=== PATIENT | female | born 2000 | race Caucasian/White ===

== ENCOUNTER 2019-07-17 11:59 | Outpatient (REF) | payer BC, SELFPAY ==
[2019-07-17 19:57] LABS: ALT 75 U/L (14-59); AST 51 U/L (15-37); Albumin 4.1 g/dL (3.4-5.0); Alkaline Phosphatase 95 U/L (46-116); Anion Gap 11.9 mmol/L (3-11); BUN 9 mg/dL (7-18); Bilirubin, Total 0.3 mg/dL (0.2-1.0); CO2 27.1 mmol/L (21.0-32.0); CREATININE 0.73 mg/dL (0.55-1.02); Calcium 9.5 mg/dL (8.5-10.1); Chloride 102 mmol/L (98-107); Glucose 89 mg/dL (70-100); Sodium 141 mmol/L (136-145); Total Protein 9.2 g/dL (6.4-8.2)
[2019-07-17 20:16] LABS: HCT 41.9 % (36.0-46.0); HGB 13.5 g/dL (12.0-15.5); Mean Corp. HGB Concentration 32.2 g/dL (32.0-36.0); Mean Corpuscular Hemoglobin 29.1 pg (27.0-33.0); Mean Corpuscular Volume 90.3 fL (80-95); Mean Platelet Volume 10.7 fL (8.0-11.0); Platelet Count 215 x1000/uL (130-400); RBC 4.64 m/cumm (4.00-5.20); RBC Distribution Width 12.9 % (11.7-14.6); White Blood Cell Count 5.67 k/cumm (4.4-10.8)
[2019-07-19 11:34] LABS: Hepatitis B Surface Ag Negative (NEGAT)
[2019-07-19 11:47] LABS: Syphilis Serology (RPR) Negative (Negative)
[2019-07-19 12:32] LABS: Hepatitis B Surface Ab Positive
[2019-07-19 12:34] LABS: HIV-1/2 Ag & Ab Screen Negative (NEGAT)
[2019-07-19 12:36] LABS: Hep A Total Ab w Rflx IgM Negative (NEGAT)
[2019-07-19 12:42] LABS: Hepatitis C Ab w Rflx HCV PCR Negative (NEGAT)
== END 2019-07-17 12:19 ==
LOC: NCHCN 11:59
PROVIDERS: PCP Nurse Practitioner Family; Visit Provider Nurse Practitioner Family
DX: Z20.2 Contact with and (suspected) exposure to infections with a predominantly sexual mode of transmission (principal); Z11.4 Encounter for screening for human immunodeficiency virus [HIV]; Z11.51 Encounter for screening for human papillomavirus (HPV)
CPT/HCPCS: 80053; 85027; 86706; 86709; 86803; 87340; 87389; 86592

== ENCOUNTER 2020-05-29 16:42 | Outpatient (REF) | payer BC, SELFPAY ==
[2020-06-01 22:30] LABS: Patient Race White; SARS-CoV-2 RNA Undetected (Undetected); SARS-CoV-2 Specimen Source Nasopharynx
== END 2020-05-29 17:02 ==
LOC: NCHCN 16:42
PROVIDERS: PCP Nurse Practitioner Family; Visit Provider Nurse Practitioner Family
DX: J06.9 Acute upper respiratory infection, unspecified (principal)
CPT/HCPCS: U0003

== ENCOUNTER 2020-07-18 13:39 | Outpatient (REF) | payer BC, SELFPAY ==
--- NOTE | 2020-07-18 12:15 | PAPFT_PTH ---
PATIENT: Smita Taveras LOC: [facility] U#:[id number] AGE/SX: 20/F ROOM: RE07/18/[address]: Chucho Reyes : 2000 BED: DIS: 07/18/2020 SPEC #: [id number] RECD: 07/18/20 18:14 STATUS: TAMEKA REQ #: [id number] CLARA: 07/18/20 12:[address]: Chucho Reyes DEPT: [facility] Cytology RECD BY: Asia Galicia Tissues: 1 - CX/ENDOCX FOR PAP SMEARS Procedures: PAP THIN PREP/UVM Screening Comments: [id number] (CHLAMYDIA/GC)
[2020-07-18 18:53] LABS: HCT 45.5 % (36.0-46.0); HGB 14.6 g/dL (11.2-15.7); MCH 29.7 pg (27.0-33.0); MCHC 32.1 % (32.0-36.0); MCV 92.5 fL (80-95); Platelet Count 210 10^3/uL (130-400); RBC 4.92 10^6/uL (3.93-5.22); RDW 12.2 % (11.7-14.6); RDW-SD 42.2 fL; WBC 5.09 10^3/uL (4.4-10.8)
[2020-07-18 19:12] LABS: ALT 24 U/L (14-59); AST 14 U/L (15-37); Albumin 4.4 g/dL (3.4-5.0); Alkaline Phosphatase 70 U/L (46-116); Anion Gap 6.8 mmol/L (3-11); BUN 6 mg/dL (7-18); Bilirubin, Total 0.4 mg/dL (0.2-1.0); CO2 27.2 mmol/L (21.0-32.0); CREATININE 0.69 mg/dL (0.55-1.02); Calcium 9.3 mg/dL (8.5-10.1); Chloride 106 mmol/L (98-107); Glucose 75 mg/dL (74-106); Sodium 140 mmol/L (136-145); Total Protein 8.6 g/dL (6.4-8.2)
[2020-07-21 10:16] LABS: HIV-1/2 Ag & Ab Screen Negative (Negative)
[2020-07-21 10:46] LABS: Syphilis Serology (RPR) Negative (Negative)
[2020-07-21 14:22] LABS: HCV RNA Qualitative Undetected (Undetected)
[2020-07-21 15:14] LABS: Chlamydia Result Negative (Negative); GC Result Negative (Negative)
[2020-07-22 07:15] LABS: Chlamydia Result Negative (Negative); GC Result Negative (Negative)
== END 2020-07-18 13:59 ==
LOC: NCHCN 13:39
PROVIDERS: PCP Nurse Practitioner Family; Visit Provider Nurse Practitioner Family
DX: Z00.00 Encounter for general adult medical examination without abnormal findings (principal); Z12.4 Encounter for screening for malignant neoplasm of cervix; Z11.51 Encounter for screening for human papillomavirus (HPV); Z11.3 Encounter for screening for infections with a predominantly sexual mode of transmission
CPT/HCPCS: 80053; 85027; 87389; 87491; 87522; 87591; 88142; 86592; 87480; 87510; 87660

== ENCOUNTER 2020-08-28 10:49 | Emergency (ER) | payer OTHER, BC, SELFPAY ==
[2020-08-28 10:55] VITALS: BP 128/88; PULSE 106; RESP 16; TEMP 37.4; O2SAT 99
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
[2020-08-28] MEDS: Ondansetron O.D.T. 4 MG TABEF PO (11:21)
[2020-08-28] MEDS: Ibuprofen 600 MG TAB PO (11:28)
[2020-08-28 12:12] VITALS: BP 106/75; PULSE 97; RESP 18; TEMP 37.1; O2SAT 100
[2020-08-28 12:15] VITALS: BP 106/75; PULSE 97; RESP 18; TEMP 37.1; O2SAT 100
== END 2020-08-28 12:15 | disposition home or self-care (01) ==
PROVIDERS: Emergency Provider Registered Nurse Emergency; PCP Nurse Practitioner Family
DX: S00.11XA Contusion of right eyelid and periocular area, initial encounter (principal); V43.52XA Car driver injured in collision with other type car in traffic accident, initial encounter; M54.2 Cervicalgia
CPT/HCPCS: 81025; 99284; 70486

== ENCOUNTER 2020-08-29 21:17 | Outpatient (REF) | payer BC, SELFPAY ==
[2020-09-02 21:09] LABS: COVID-19 RT-PCR Result Positive (Negative)
== END 2020-08-29 21:37 ==
LOC: NCHCN 21:17
PROVIDERS: PCP Nurse Practitioner Family; Visit Provider Nurse Practitioner Family
DX: R43.0 Anosmia (principal)
CPT/HCPCS: U0003

== ENCOUNTER 2020-11-22 14:39 | Outpatient (REF) | payer BC, SELFPAY ==
[2020-11-23 16:34] LABS: COVID-19 RT-PCR UVMMC Result Negative (Negative)
== END 2020-11-22 14:40 | disposition home or self-care (01) ==
LOC: NCHCN 14:39
PROVIDERS: PCP Nurse Practitioner Family; Visit Provider Nurse Practitioner Family
DX: Z20.822 Contact with and (suspected) exposure to COVID-19 (principal); J02.9 Acute pharyngitis, unspecified
CPT/HCPCS: U0003; 87086

== ENCOUNTER 2020-12-26 10:46 | Outpatient (REF) | payer BC, SELFPAY ==
[2020-12-26 15:31] LABS: Abs Immature Grans 0.01 10^3/uL (0.0-0.06); Absolute Basophil Count 0.02 10^3/uL (0.0-0.2); Absolute Eosinophil Count 0.05 10^3/uL (0.0-0.7); Absolute Monocyte Count 0.25 10^3/uL (0.1-0.8); Absolute Neutrophil Count 1.79 10^3/uL (1.2-6.7); Basophils % 0.6; Eosinophils % 1.4; HCT 39.5 % (36.0-46.0); HGB 13.1 g/dL (11.2-15.7); Immature Grans % 0.3; Lymphocytes % 41.4; MCH 29.4 pg (27.0-33.0); MCHC 33.2 % (32.0-36.0); MCV 88.8 fL (80-95); MPV 11.2 fL (8.0-11.0); Monocytes % 6.9; Neutrophils % 49.4; Nucleated RBC 0 %; Platelet Count 183 10^3/uL (130-400); RBC 4.45 10^6/uL (3.93-5.22); RDW 11.9 % (11.7-14.6); RDW-SD 38.2 fL; WBC 3.62 10^3/uL (4.4-10.8)
[2020-12-26 15:53] LABS: ALT 19 U/L (14-59); AST 13 U/L (15-37); Alkaline Phosphatase 65 U/L (46-116); Anion Gap 7.8 mmol/L (3-11); BUN 10 mg/dL (7-18); Bilirubin, Total 0.4 mg/dL (0.2-1.0); CO2 26.2 mmol/L (21.0-32.0); CREATININE 0.7 mg/dL (0.55-1.02); Calcium 9.2 mg/dL (8.5-10.1); Chloride 106 mmol/L (98-107); Glucose 82 mg/dL (74-106); Sodium 140 mmol/L (136-145); Total Protein 7.8 g/dL (6.4-8.2)
[2020-12-29 11:28] LABS: Lyme Ab w Rflx to Lyme Confirm Negative (Negative)
[2020-12-30 06:01] LABS: Anaplasma phagocytophilum Negative (Negative); B. miyamotoi PCR Negative (Negative); Babesia divergens/MO-1 Negative (Negative); Babesia duncani Negative (Negative); Babesia microti Negative (Negative); Ehrlichia chaffeensis Negative (Negative); Ehrlichia ewingii/canis Negative (Negative); Ehrlichia muris eauclairensis Negative (Negative)
== END 2020-12-26 10:47 | disposition home or self-care (01) ==
LOC: NCHCN 10:46
PROVIDERS: PCP Nurse Practitioner Family; Visit Provider Nurse Practitioner Family
DX: R53.83 Other fatigue (principal); Z86.16 Personal history of COVID-19; R00.2 Palpitations
CPT/HCPCS: 80053; 87798; 84443; 85025; 86618

== ENCOUNTER 2022-09-16 07:36 | Emergency (ER) | payer BC, SELFPAY ==
[2022-09-16 07:41] VITALS: BP 127/74; PULSE 88; RESP 16; TEMP 36.7; O2SAT 99
--- NOTE | 2022-09-16 08:00 | RT.EKG_ITS ---
APPROVED REPORT Exam: Resting ECG Reason for Exam: assess intervals Patient Location: E HR:73 bpm ECG Measurements Heart Rate 73 AXIS MD 129 P -42 QRSd 92 QRS 4 QT 379 T 9 QTc 419 Conclusion Sinus rhythm...normal P axis, V-rate 60- 99. Sinus. Normal axis. No STEMI. I have reviewed and interpreted ECG and agree with software generated interpretation.
--- NOTE | 2022-09-16 08:14 | ED.GENADUL_ITS ---
Discharge Plan Disposition Patient Disposition: Home Condition: Improving Discharge Details Clinical Impression: Nausea and vomiting during prior to 22 weeks gestation Primary Care Provider: Alyssa Sams ED Provider: Willow Benjamin Home Meds and New Rx's Prescriptions: Continued ondansetron 4 mg tablet,disintegrating 4 mg PO Q8H PRN (Reason: nausea and vomiting) Qty: 14 3RF rizatriptan [Maxalt] 10 mg tablet 10 mg PO ONCE Qty: 14 3RF Rx Instructions: may repeat once after at least 2 hours Excedrin Migraine 250-250-65 mg tablet 2 tab PO BID PRN escitalopram oxalate 20 mg tablet 10 mg PO DAILY Discharge Instructions Instructions: Nausea and Vomiting in (ED) Additional Instructions: Your blood tests today are reassuring and show no evidence of acute concerning or significant findings. Drink plenty of fluids and get plenty of rest. Take the Zofran as needed and directed for nausea and vomiting. Call your central office repairer today to schedule a follow-up appointment for reevaluation within the next week. Return immediately to the emergency department if you develop any worsening or new concerning symptoms. Stand Alone Forms: Work Release Discharge Data Discharge Date/Time-TO BE ENTERED AT DEPARTURE: 09/16/22 10:49 Discharge Physician: Willow Benjamin Medical Decision Making 0750 -- 22-year-old female G1, P0 at approximately 8 weeks presents with nausea and vomiting for the past 4 weeks, persistent over the past few days. Vitals within normal limits. Patient appears comfortable and nontoxic. Her abdomen is soft and nontender. Patient states she has had an OB ultrasound at [facility] which confirmed a single IUP. We will obtain these results. We will also place an IV, bolus IV fluids, screening labs, urinalysis, fluvid and give zofran and reassess. EKG obtained due to interaction of Zofran with Lexapro and she has a normal QT interval. 1030 --patient reassessed and she feels much better would like to go home. She was able to drink water and eat crackers and has no further nausea and vomiting. She again denies any abdominal pain. Have not yet received the OB ultrasound report from [place] the patient confirms that she has a single IUP. She states she has Zofran at home. We will give additional Zofran upon discharge. She is advised to call her OB today for follow-up. Usual and customary return precautions given prior to discharge. After patient discharge, able to obtain recent OB ultrasound from [facility] which noted an endometrial gestational sac but no evidence of yolk sac. Medical Records Medical records reviewed: Yes I reviewed the patient's medical records. Lab Data Lab results reviewed: Yes I reviewed the patient's lab results. Labs: Laboratory Tests Range/Units 09/16/22 09/16/22 09/16/22 08:40 08:40 08:43 WBC (4.4-10.8) 10^3/uL 4.94 RBC (3.93-5.22) 10^6/uL 4.68 Hgb (11.2-15.7) g/dL 13.9 Hct (36.0-46.0) % 41.2 MCV (80-95) fL 88 MCH (27.0-33.0) pg 29.7 MCHC (32.0-36.0) % 33.7 RDW (11.7-14.6) % 11.8 Plt Count (130-400) 10^3/uL 188 MPV (8.0-11.0) fL 10.6 Immature Gran % 0.2 Neutrophils % 65.6 Lymphocytes % 27.9 Monocytes % 5.7 Eosinophils % 0.4 Basophils % 0.2 Nucleated RBC % (0.0-0.3) % 0.0 Absolute Neutrophils (1.2-6.7) 10^3/uL 3.24 Absolute Lymphocytes (1.2-3.4) 10^3/uL 1.38 Absolute Monocytes (0.1-0.8) 10^3/uL 0.28 Absolute Eosinophils (0.0-0.7) 10^3/uL 0.02 Absolute Basophils (0.0-0.2) 10^3/uL 0.01 Sodium (136-145) mmol/L 135 L Potassium (3.5-5.1) mmol/L 3.7 Chloride (98-107) mmol/L 100 Carbon Dioxide (21.0-32.0) mmol/L 25.4 Anion Gap (3-11) mmol/L 9.6 BUN (7-18) mg/dL 8 Creatinine (0.55-1.02) mg/dL 0.6 Est GFR (CKD-EPI 2021) (mL/min/1.73m2) 128.46 Glucose (74-106) mg/dL 84 Calcium (8.5-10.1) mg/dL 9.6 Total Bilirubin (0.2-1.0) mg/dL 0.4 AST (15-37) U/L 25 ALT (14-59) U/L 38 Alkaline Phosphatase (46-116) U/L 57 Total Protein (6.4-8.2) g/dL 8.9 H Albumin (3.4-5.0) g/dL 4.0 Urine Color (Yellow) Urine Clarity (Clear) Urine pH (5-8) Ur Specific [place] (1.005-1.025) Urine Protein (Negative) mg/dL Urine Ketones (Negative) mg/dL Urine Blood (Negative) Urine Nitrite (Negative) Urine Bilirubin (Negative) Urine Urobilinogen (Up TO 0.2) EU/dL Ur Leukocyte Esterase (Negative) Urine RBC (0-2) HPF Urine WBC (0-5) HPF Ur Epithelial Cells (Negative) HPF Urine Crystals (Negative) HPF Urine Bacteria (Negative) HPF Urine Casts (Negative) LPF Urine Mucus (Negative) Ur Culture Indicated? Urine Glucose (Negative) mg/dL COVID-19 Source Nasopharynx SARS-CoV-2 (PCR) (Negative) Negative Influenza Type A (PCR) (Negative) Negative Influenza Type B (PCR) (Negative) Negative RSV (PCR) (Negative) Negative Range/Units 09/16/22 09:15 WBC (4.4-10.8) 10^3/uL RBC (3.93-5.22) 10^6/uL Hgb (11.2-15.7) g/dL Hct (36.0-46.0) % MCV (80-95) fL MCH (27.0-33.0) pg MCHC (32.0-36.0) % RDW (11.7-14.6) % Plt Count (130-400) 10^3/uL MPV (8.0-11.0) fL Immature Gran % Neutrophils % Lymphocytes % Monocytes % Eosinophils % Basophils % Nucleated RBC % (0.0-0.3) % Absolute Neutrophils (1.2-6.7) 10^3/uL Absolute Lymphocytes (1.2-3.4) 10^3/uL Absolute Monocytes (0.1-0.8) 10^3/uL Absolute Eosinophils (0.0-0.7) 10^3/uL Absolute Basophils (0.0-0.2) 10^3/uL Sodium (136-145) mmol/L Potassium (3.5-5.1) mmol/L Chloride (98-107) mmol/L Carbon Dioxide (21.0-32.0) mmol/L Anion Gap (3-11) mmol/L BUN (7-18) mg/dL Creatinine (0.55-1.02) mg/dL Est GFR (CKD-EPI 2020) (mL/min/1.73m2) Glucose (74-106) mg/dL Calcium (8.5-10.1) mg/dL Total Bilirubin (0.2-1.0) mg/dL AST (15-37) U/L ALT (14-59) U/L Alkaline Phosphatase (46-116) U/L Total Protein (6.4-8.2) g/dL Albumin (3.4-5.0) g/dL Urine Color (Yellow) Yellow Urine Clarity (Clear) Clear Urine pH (5-8) 7.0 Ur Specific [place] (1.005-1.025) 1.015 Urine Protein (Negative) mg/dL Negative Urine Ketones (Negative) mg/dL 15 H Urine Blood (Negative) Negative Urine Nitrite (Negative) Negative Urine Bilirubin (Negative) Negative Urine Urobilinogen (Up TO 0.2) EU/dL 0.2 Ur Leukocyte Esterase (Negative) Trace H Urine RBC (0-2) HPF Negative Urine WBC (0-5) HPF 0-2 Ur Epithelial Cells (Negative) HPF Moderate Urine Crystals (Negative) HPF Negative Urine Bacteria (Negative) HPF Rare Urine Casts (Negative) LPF Negative Urine Mucus (Negative) Trace Ur Culture Indicated? No/Sq. Contamination Urine Glucose (Negative) mg/dL Negative COVID-19 Source SARS-CoV-2 (PCR) (Negative) Influenza Type A (PCR) (Negative) Influenza Type B (PCR) (Negative) RSV (PCR) (Negative) ECG Data Attestation: I personally reviewed and interpreted this ECG (s) as follows: Interpretation: rate of 73, sinus, normal axis, QTc 419. No stemi. HPI General Mode of arrival: ambulatory . Date/Time Provider Initiated Documentation: 09/16/22 07:37 . Limitations to Documentation: no limitations . Information obtained by: patient . HPI Narrative: Patient is a 22-year-old female G1, P0 at approximately 8 weeks with a reported last menstrual period around Halloween presents for nausea and vomiting for the past several weeks, worse over the past few days with concern for dehydration per patient. Patient states he vomited 9 times yesterday which was mainly clear, food or bile. She states she has been able to keep down her dinner since last night. She has been trying to drink fluids as much as possible. She states her last bowel movement was 4 days ago. She states she normally has a bowel movement every other day. Patient denies any abdominal pain or vaginal bleeding. She also denies fever, chest pain, difficulty breathing, dysuria or hematuria. Related Data Home Medications Medication Instructions Recorded Confirmed ondansetron 4 mg disintegrating 4 mg PO Q8H PRN nausea and 03/25/21 09/16/22 tablet vomiting #14 tabs alkljjj-rimvabqpqyjgu-euqjrfnv 250 2 tab PO BID PRN 05/19/21 09/16/22 mg-250 mg-65 mg tablet (Excedrin Migraine) rizatriptan 10 mg tablet (Maxalt) 10 mg PO ONCE #14 tabs 11/10/21 09/16/22 escitalopram oxalate 20 mg tablet 10 mg PO DAILY 09/16/22 09/16/22 Previous Rx's Medication Instructions Recorded ondansetron 4 mg disintegrating 4 mg PO Q8H PRN nausea and 03/25/21 tablet vomiting #14 tabs rizatriptan 10 mg tablet (Maxalt) 10 mg PO ONCE #14 tabs 11/10/21 Allergies Allergy/AdvReac Type Severity Reaction Status Date / Time No Known Allergies Allergy Verified 09/16/22 07:45 General Stated Complaint: Nausea/Vomit/Diar GENEVIEVE: 4 Review of Systems All systems reviewed & are unremarkable except as noted in HPI and below Constitutional Constitutional: Reports as per HPI, Denies chills and Denies fever(s) Eyes Eyes: Denies blurry vision ENT Ears, Nose, Mouth, and Throat: Denies dizziness, Denies sore throat and Denies throat swelling Cardiovascular Cardiovascular: Denies chest pain and Denies dyspnea Respiratory Respiratory: Denies cough and Denies dyspnea Gastrointestinal Gastrointestinal: Denies abdominal pain, Denies diarrhea, Reports nausea and Reports vomiting Genitourinary Genitourinary: Denies hematuria and Denies dysuria Musculoskeletal Musculoskeletal: Denies back pain and Denies numbness Integumentary/Breasts Skin/Breast: Denies lesions and Denies rash Neurologic Neurologic: Denies dizziness, Denies localized weakness and Denies numbness Allergic/Immunologic Allergic/Immunologic: Denies throat swelling PFSH All Active Problems (Updated 09/16/22 @ 10:37 by Willow Benjamin DO) Nausea and vomiting during prior to 22 weeks gestation (Acute) Mood swings (Acute) Complaints of memory disturbance (Acute) Migraine (Acute) COVID-19 long hauler (Acute) Acne (Acute 11/22/12) inflamatory followed by drem--accutaine 12/11/2013 Allergic rhinitis (Acute 01/20/12) Idiopathic scoliosis (Acute 01/20/12) Normal body mass index (Acute 02/16/17) Preventative health care (Acute 02/16/17) Routine sports examination for healthy child or adolescent (Acute 07/19/13) Medical History (Updated 09/16/22 @ 10:37 by Willow Benjamin DO) Adjustment disorder with mixed anxiety and depressed mood Chronic constipation Cystic acne Dyspareunia Elevated liver function tests Fatigue Irritability Menorrhagia Palpitations Personal history of COVID-19 Self-harming behavior Snoring UTI (urinary tract infection) as baby Surgical History (Updated 09/16/22 @ 08:28 by Willow Benjamin DO) No significant past surgical history Family History Mother Menorrhagia Neoplasm breast Father Anxiety Depression Other No problems noted. Brother Asthma Social History Smoking/Tobacco Use Status: Never Smoking risk assessment performed?: Yes Alcohol Intake: current Alcohol Intake frequency: a few times a month Drug use: Occasionally Substance use type: marijuana Details: No use since Do you feel safe at home: Yes Do you feel safe in your relationship?: Yes Exam Const General: cooperative, healthy appearing and no acute distress HENMT Head: normal to inspection Face and sinus: normal facial exam Eyes General: appearance normal, both eyes and all related structures Neck Neck: normal visual inspection and No submandibular swelling Lymphatic: no lymphadenopathy noted Chest Chest: normal inspection of the chest and no tenderness Resp Effort & Inspection: normal respiratory effort and able to speak in complete sentences Auscultation: clear to auscultation bilaterally Cardio Rate: regular rate Rhythm: regular rhythm GI Inspection: normal to inspection Palpation: soft, not firm, not rigid and nontender Auscultation: hypoactive bowel sounds Back/Spine/Pelvis Thoracic/Lumbar Spine: thoracic and lumbar spine normal to inspection Skin General skin exam: no rashes or lesions noted Neuro General: patient alert, patient awake and patient oriented x3 Cognition: normal cognition Speech: speech normal Motor: muscle tone normal throughout Sensory Exam: no sensory deficits noted Extrem General: normal to inspection, full ROM, capillary refill normal, no calf tenderness bilaterally and no edema Psych Appearance: grossly normal Mental Status: mental status grossly normal Speech and Movement: speech and movement normal Affect: normal affect Course Vital Signs Vital signs: Vital Signs Temperature 98.1 F 09/16/22 07:41 Pulse 88 09/16/22 07:41 Respiratory Rate 16 09/16/22 07:41 Blood Pressure 127/74 09/16/22 07:41 Pulse Oximetry 99 09/16/22 07:41 Temperature 98.1 F 09/16/22 07:41 Temperature Source Temporal Artery Scan 09/16/22 07:41 Pulse 88 09/16/22 07:41 Respiratory Rate 16 09/16/22 07:41 Respiratory Effort Non-Labored 09/16/22 07:43 Blood Pressure 127/74 09/16/22 07:41 Blood Pressure Position Sitting 09/16/22 07:41 Pulse Oximetry 99 09/16/22 07:41 Oxygen Delivery Method Room Air 09/16/22 07:41 Oxygen Flow Rate 0 09/16/22 07:41 Pain Level 3 09/16/22 07:41
[2022-09-16] MEDS: Normal Saline 1,000 ML 1000 ML IV (08:41)
[2022-09-16] MEDS: Ondansetron 4 MG/2 ML VIAL IVP (08:41)
[2022-09-16 08:49] LABS: Abs Immature Grans 0.01 10^3/uL (0.0-0.06); Absolute Basophil Count 0.01 10^3/uL (0.0-0.2); Absolute Eosinophil Count 0.02 10^3/uL (0.0-0.7); Absolute Lymphocyte Count 1.38 10^3/uL (1.2-3.4); Absolute Monocyte Count 0.28 10^3/uL (0.1-0.8); Absolute Neutrophil Count 3.24 10^3/uL (1.2-6.7); Basophils % 0.2; Eosinophils % 0.4; HCT 41.2 % (36.0-46.0); HGB 13.9 g/dL (11.2-15.7); Immature Grans % 0.2; Lymphocytes % 27.9; MCH 29.7 pg (27.0-33.0); MCHC 33.7 % (32.0-36.0); MCV 88 fL (80-95); MPV 10.6 fL (8.0-11.0); Monocytes % 5.7; Neutrophils % 65.6; Platelet Count 188 10^3/uL (130-400); RBC 4.68 10^6/uL (3.93-5.22); RDW 11.8 % (11.7-14.6); RDW-SD 37.7 fL; WBC 4.94 10^3/uL (4.4-10.8)
[2022-09-16 09:03] LABS: ALT 38 U/L (14-59); AST 25 U/L (15-37); Alkaline Phosphatase 57 U/L (46-116); Anion Gap 9.6 mmol/L (3-11); BUN 8 mg/dL (7-18); Bilirubin, Total 0.4 mg/dL (0.2-1.0); CO2 25.4 mmol/L (21.0-32.0); CREATININE 0.6 mg/dL (0.55-1.02); Calcium 9.6 mg/dL (8.5-10.1); Chloride 100 mmol/L (98-107); Estimated GFR 128.46 (mL/min/1.73m2); Glucose 84 mg/dL (74-106); Potassium 3.7 mmol/L (3.5-5.1); Sodium 135 mmol/L (136-145); Total Protein 8.9 g/dL (6.4-8.2)
[2022-09-16 09:26] LABS: Bilirubin Negative (Negative); Blood Negative (Negative); Clarity Clear (Clear); Glucose Negative (Negative); Ketones 15 mg/dL (Negative); Leukocyte Esterase Trace (Negative); Nitrite Negative (Negative); Specific Gravity 1.015 (1.005-1.025); Urobilinogen 0.2 EU/dL (Up TO 0.2)
[2022-09-16 09:26] LABS: COVID-19 PCR Negative (Negative); Influenza A PCR Negative (Negative); Influenza B PCR Negative (Negative); RSV PCR Negative (Negative)
[2022-09-16 09:27] LABS: Source Nasopharynx
[2022-09-16 09:36] LABS: RBC Negative HPF (0-2); WBC 0-2 HPF (0-5)
[2022-09-16 09:37] LABS: Bacteria Rare HPF (Negative); C & S Indicated? No/Sq. Contamination; Casts Negative LPF (Negative); Crystals Negative HPF (Negative); Epithelial Cells Moderate HPF (Negative); Mucus Trace (Negative)
[2022-09-16 10:37] VITALS: BP 106/67; PULSE 77; TEMP 37; O2SAT 100
== END 2022-09-16 10:49 | disposition home or self-care (01) ==
PROVIDERS: Emergency Provider Physician Assistant; PCP Nurse Practitioner
DX: O21.9 Vomiting of pregnancy, unspecified (principal); Z3A.08 8 weeks gestation of pregnancy; Z20.822 Contact with and (suspected) exposure to COVID-19; Z86.16 Personal history of COVID-19
CPT/HCPCS: 36415; 80053; 87637; 93005; 96361; 96374; 99284; 81003; 81015; 85025; 93010; J2405

== ENCOUNTER 2023-11-11 18:25 | Emergency (ER) | payer BC, SELFPAY ==
[2023-11-11 18:37] VITALS: BP 128/81; PULSE 105; RESP 16; TEMP 36.7; O2SAT 98
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
[2023-11-11] MEDS: Acetaminophen 500 MG TAB 1000 MG PO (19:09)
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
[2023-11-11] MEDS: diphenhydrAMINE 25 MG CAP PO (19:48)
[2023-11-11] MEDS: Prochlorperazine 5 MG TAB PO (19:49)
[2023-11-11 20:19] VITALS: BP 128/81; PULSE 105; RESP 16; TEMP 36.7; O2SAT 98
== END 2023-11-11 20:19 | disposition home or self-care (01) ==
PROVIDERS: Emergency Provider Registered Nurse Emergency; PCP Physician Assistant
DX: S16.1XXA Strain of muscle, fascia and tendon at neck level, initial encounter (principal); M54.2 Cervicalgia; R51.9 Headache, unspecified; R11.0 Nausea; V47.0XXA Car driver injured in collision with fixed or stationary object in nontraffic accident, initial encounter
CPT/HCPCS: 99284; 70450; 72125; 99283

== ENCOUNTER 2025-01-23 15:11 | Outpatient (REF) | payer MEDICAID, SELFPAY ==
[2025-01-23 20:46] LABS: HCT 40.7 % (36.0-46.0); HGB 13.1 g/dL (11.2-15.7); MCH 28.6 pg (27.0-33.0); MCHC 32.2 % (32.0-36.0); MCV 89 fL (80-95); MPV 10.9 fL (8.0-11.0); Platelet Count 161 10^3/uL (130-400); RBC 4.58 10^6/uL (3.93-5.22); RDW 12.7 % (11.7-14.6); RDW-SD 41.1 fL; WBC 4.54 10^3/uL (4.4-10.8)
[2025-01-23 21:26] LABS: Ferritin 27 ng/mL (8-252); TSH 1.97 uIU/mL (0.36-3.74); Vitamin B12 598 pg/mL (193-986)
[2025-01-23 21:42] LABS: Iron 66 ug/dL (50-170); Total Iron Binding Capacity 349 ug/dL (250-450); Transferrin Sat 19 % (15-50)
[2025-01-23 22:28] LABS: FREE T4 0.77 ng/dL (0.76-1.46)
== END 2025-01-23 15:12 | disposition home or self-care (01) ==
LOC: NCHCN 15:11
PROVIDERS: PCP Physician Assistant; Visit Provider Physician Assistant
DX: R51.9 Headache, unspecified (principal); G89.29 Other chronic pain; R53.83 Other fatigue
CPT/HCPCS: 85027; 82607; 82728; 83540; 83550; 84439; 84443

== ENCOUNTER 2025-02-13 21:37 | Outpatient (REF) | payer MEDICAID, SELFPAY | END 2025-02-13 21:38 | disposition home or self-care (01) | LOC: LBN 21:37 | PROVIDERS: PCP Physician Assistant; Visit Provider Physician Assistant Medical | DX: J02.9 Acute pharyngitis, unspecified (principal) | CPT/HCPCS: 87070 ==

== ENCOUNTER 2025-04-29 16:03 | Outpatient (REF) | payer MEDICAID, SELFPAY ==
[2025-04-29 19:27] LABS: Iron 57 ug/dL (50-170); Total Iron Binding Capacity 317 ug/dL (250-450); Transferrin Sat 18 % (15-50)
[2025-04-29 20:43] LABS: ALT 42 U/L (14-59); AST 30 U/L (15-37); Albumin 4.0 g/dL (3.4-5.0); Alkaline Phosphatase 76 U/L (46-116); Anion Gap 11.7 mmol/L (3-11); BUN 10 mg/dL (7-18); Bilirubin, Total 0.2 mg/dL (0.2-1.0); CO2 23.3 mmol/L (21.0-32.0); Calcium 8.9 mg/dL (8.5-10.1); Chloride 104 mmol/L (98-107); Estimated GFR 131.75 (mL/min/1.73m2); Ferritin 36 ng/mL (8-252); Glucose 77 mg/dL (74-106); Potassium 3.8 mmol/L (3.5-5.1); Sodium 139 mmol/L (136-145); Total Protein 8.2 g/dL (6.4-8.2)
== END 2025-04-29 16:04 | disposition home or self-care (01) ==
LOC: NCHCN 16:03
PROVIDERS: PCP Physician Assistant; Visit Provider Physician Assistant
DX: R53.83 Other fatigue (principal)
CPT/HCPCS: 80053; 82728; 83540; 83550

== ENCOUNTER 2025-06-10 14:47 | Outpatient (REF) | payer MEDICAID, SELFPAY ==
[2025-06-10 21:07] LABS: Glucose Negative (Negative)
[2025-06-10 21:46] LABS: RBC Negative HPF (0-2)
== END 2025-06-10 14:48 | disposition home or self-care (01) ==
LOC: NCHCN 14:47
PROVIDERS: PCP Physician Assistant; Visit Provider Physician Assistant
DX: R10.9 Unspecified abdominal pain (principal)
CPT/HCPCS: 81003; 81015